=== PATIENT | female | born 1995 | race Caucasian/White ===

== ENCOUNTER 2020-11-27 13:26 | Emergency (ER) | payer OTHER ==
[2020-11-27] MEDS ORDERED: IBU800 MG PO (15:31)
[2020-11-27] MEDS ORDERED: ZOFRAN ODT 4 MG4 MG SL (15:31)
== END 2020-11-27 16:20 | disposition home or self-care (01) ==
LOC: ER1 13:26
DX: U07.1 COVID-19 (principal)
CPT/HCPCS: 71046; 99283